=== PATIENT | female | born 1985 | race Caucasian/White ===

== ENCOUNTER 2019-05-26 21:38 | Emergency (ER) | payer OTHER, MEDICAID ==
[~2019-05-26] VITALS: Ht 160 cm; Wt 52.2 kg
[2019-05-26 22:01] VITALS: Ht 160 cm; Wt 52.2 kg
[2019-05-27 02:50] VITALS: BP 116/60
== END 2019-05-27 06:22 | disposition home or self-care (01) ==
LOC: ED 21:38
DX: R11.0 Nausea (principal); F17.210 Nicotine dependence, cigarettes, uncomplicated; Z13.89 Encounter for screening for other disorder